=== PATIENT | female | born 2000 | race Two or more races ===

== ENCOUNTER 2024-03-13 09:12 | Inpatient (IN) ==
[2024-03-13 09:51] LABS: BILIRUBIN,URINE NEGATIVE (NEGATIVE); BLOOD/HEMOGLOBIN,URINE NEGATIVE (NEGATIVE); GLUCOSE, URINE NEGATIVE (NEGATIVE); KETONES,URINE NEGATIVE (NEGATIVE); LEUKOCYTE ESTERASE ,URINE 2+ (NEGATIVE); NITRITES,URINE NEGATIVE (NEGATIVE); PH,URINE 6.5 (5.0 - 8.0); PROTEIN,URINE 1+ (NEGATIVE); UROBILINOGEN,URINE NORMAL (NORMAL)
[2024-03-13 09:59] LABS: AMNISURE ROM TEST NO MEMBRANES RUPTURE (NO RUPTURE)
[2024-03-13 10:01] LABS: APPEARANCE,URINE SLIGHTLY HAZY (CLEAR); BACTERIA,URINE TRACE /HPF (NEGATIVE); COLOR,URINE YELLOW (YELLOW); RBC,URINE NONE SEEN /HPF (0-3); SQUAMOUS EPITHELIAL CELL,UR MANY /HPF (NEGATIVE)
[2024-03-13] MEDS ORDERED: ZOFRAN INJ 4 MG VIAL IVP PRN (10:05)
[2024-03-13] MEDS ORDERED: NUBAIN INJ 20 MG AMP IVP PRN (10:05)
[2024-03-13] MEDS ORDERED: REGLAN INJ 10 MG VIAL IVP PRN (10:05)
[2024-03-13] MEDS ORDERED: PITOCIN ONE (10:08)
[2024-03-13 10:09] VITALS: BMI 34.2
[2024-03-13] MEDS ORDERED: D5 1/2 NS 1,000 ML 1,000 ML IV ONE (10:09)
[2024-03-13] MEDS: D5 1/2 NS 1,000 ML 1,000 ML IV SCH (10:30)
[2024-03-13] MEDS: LR 1,000 ML IV 1,000 ML IV ONE (10:41)
[2024-03-13 10:46] LABS: BASOPHILS # (AUTO) 0.1 X10^3/uL (0.0-0.1); BASOPHILS % (AUTO) 0.5 % (0.2-1.0); EOSINOPHILS % (AUTO) 0.2 % (0.9-2.9); HEMATOCRIT 40.3 % (36.0-47.0); HEMOGLOBIN 13.5 g/dL (12.0-16.0); LYMPHOCYTES # (AUTO) 1.7 X10^3/uL (1.3-2.9); LYMPHOCYTES % (AUTO) 14.5 % (21.0-51.0); MEAN CORPUSCULAR HEMOGLOBIN 29.5 pg (27.0-34.0); MEAN CORPUSCULAR HGB CONC 33.6 g/dL (33.0-35.0); MEAN CORPUSCULAR VOLUME 88.1 fL (80.0-100.0); MEAN PLATELET VOLUME 8.7 fL (7.4-11.0); MONOCYTES # (AUTO) 0.4 x10^3/uL (0.3-0.8); NEUTROPHILS # (AUTO) 9.6 x10^3/uL (2.2-4.8); NEUTROPHILS % (AUTO) 81.8 % (42.0-75.0); PLATELET COUNT 276 X10^3/uL (150.0-450.0); RED BLOOD COUNT 4.57 X10^6/uL (3.5-5.4); RED CELL DISTRIBUTION WIDTH 15.3 % (11.6-16.5); WHITE BLOOD COUNT 11.7 X10^3/uL (3.6-10.0)
[2024-03-13 10:51] LABS: BLOOD UREA NITROGEN 7 mg/dL (7-18); CALCIUM 9.3 mg/dL (8.5-10.1); CHLORIDE 105 mmol/L (98-107); CREATININE 0.69 mg/dL (0.55-1.02); GLUCOSE 73 mg/dL (65-99); POTASSIUM 3.6 mmol/L (3.5-5.1); SODIUM 139 mmol/L (136-145); eGFR NON BLACK RACES > 60 (>60)
[2024-03-13] MEDS: OXYTOCIN 20 UNIT/1,000 ML-NS 20 UNIT/1,000 ML PLAST..BAG IV PRN (11:40)
[2024-03-13] MEDS: FENTANYL VIAL INJ 100 mcg ONE (12:04)
[2024-03-13] MEDS: NAROPIN EPIDURAL 0.2% 100 ML ONE (12:08)
[2024-03-13] MEDS: BETADINE SOLN ONE (13:32)
[2024-03-13] MEDS: PITOCIN IVP ONE (13:41)
[2024-03-13] MEDS ORDERED: MILK OF MAGNESIA PO PRN (14:08)
[2024-03-13] MEDS ORDERED: DERMOPLAST PAIN RELIEF SPRAY TOP PRN (14:08)
[2024-03-13] MEDS ORDERED: MOTRIN TAB 800 MG PO PRN ×2 (14:08)
[2024-03-13] MEDS ORDERED: OXYTOCIN 20 UNIT/1,000 ML-NS 20 UNIT/1,000 ML PLAST..BAG IV SCH (14:15)
[2024-03-14 04:44] LABS: HEMATOCRIT 34.8 % (36.0-47.0)
[2024-03-14 04:45] LABS: HEMOGLOBIN 11.5 g/dL (12.0-16.0)
[2024-03-14] MEDS: PRENATAL PLUS PO SCH (09:57)
[2024-03-14 13:49] VITALS: BP 107/67; PULSE 64; RESP 21; TEMP 97.6; O2SAT 96
== END 2024-03-14 17:45 | disposition home or self-care (01) | DRG 807 ==
LOC: EDBD → ER 09:12 → LD 10:04 → MED/SURG 15:08
PROVIDERS: ADMIT Obstetrics & Gynecology Obstetrics; ATTEND Obstetrics & Gynecology Obstetrics
DX: O80 Encounter for full-term uncomplicated delivery; Z3A.38 38 weeks gestation of pregnancy; Z37.0 Single live birth